=== PATIENT | female | born 1985 | race Caucasian/White ===

== ENCOUNTER 2016-05-12 16:48 | Inpatient (IN) | payer MEDICAID ==
[~2016-05-12] VITALS: Ht 152.4 cm; Wt 95.5 kg
[~2016-05-12 16:48] MED LIST: HYDR-906 PO; IBUP-1542 PO; PREN1TAB62 PO
[2016-05-12] MEDS ORDERED: FOLI0.4T2 PO (17:14)
[2016-05-12] MEDS ORDERED: CALC600T11 PO (17:14)
[2016-05-12] MEDS ORDERED: FERR134T PO (17:14)
[2016-05-12] MEDS: LACTATED RINGER'S 1,000 ML IV SCH (17:20)
[2016-05-12] MEDS ORDERED: IBUPROFEN 600 MG TAB PO PRN (17:30)
[2016-05-12] MEDS ORDERED: OXYTOCIN 30 UNITS/LR 500 ML IV SCH ×2 (17:30)
[2016-05-12] MEDS ORDERED: AMPICILLIN 2 GM/NS (PMX) 100 ML IV ONE (17:30)
[2016-05-12] MEDS ORDERED: METHYLERGONOVINE 0.2 MG INJ IM PRN (17:30)
[2016-05-12] MEDS ORDERED: ACETAMINOPHEN/CODEINE #3 TAB PO PRN (17:30)
[2016-05-12] MEDS ORDERED: BUTORPHANOL 2 MG INJ IV PRN (17:30)
[2016-05-12] MEDS ORDERED: CARBOPROST 250 MCG INJ IM PRN (17:30)
[2016-05-12] MEDS ORDERED: OXYTOCIN 30 UNITS/LR 500 ML IV PRN (17:30)
[2016-05-12] MEDS ORDERED: MISOPROSTOL 200 MCG TAB PR PRN (17:30)
[2016-05-12] MEDS ORDERED: LIDOCAINE 1% (MPF) 30 ML INJ INJ PRN (17:30)
[2016-05-12 17:32] LABS: BASOPHILS % 0.3 % (0.0-2.0); CONDITION 1; EOSINOPHILS # 0.1 10^3/ul (0.0-0.5); EOSINOPHILS % 0.7 % (0.0-7.0); HEMATOCRIT 33.4 % (37.0-47.0); HEMOGLOBIN 11.5 g/dl (12.0-16.0); LYMPHOCYTES # 2.1 10^3/ul (0.8-2.9); LYMPHOCYTES % 23.8 % (15.0-51.0); MEAN CORPUSCULAR HEMOGLOBIN 30.3 pg (29.0-33.0); MEAN CORPUSCULAR HGB CONC 34.4 g/dl (32.0-37.0); MEAN CORPUSCULAR VOLUME 88.1 fl (82.0-101.0); MEAN PLATELET VOLUME 9.4 fl (7.4-10.4); MONOCYTE # 0.4 10^3/ul (0.3-0.9); MONOCYTES % 4.4 % (0.0-11.0); NEUTROPHIL # 6.2 10^3/ul (1.6-7.5); NEUTROPHILS % 70.8 % (39.0-77.0); PLATELET COUNT 195 10^3/UL (140-440); RED BLOOD COUNT 3.79 10^6/ul (4.20-5.40); RED CELL DISTRIBUTION WIDTH 13.7 % (11.5-14.5); UNCORRECTED WBC 8.8 10^3/ul (4.8-10.8); WHITE BLOOD COUNT 8.8 10^3/ul (4.8-10.8)
[2016-05-12 17:41] LABS: INR 0.91; PROTIME 12.2 Sec (12.2-14.2)
[2016-05-12 17:42] LABS: PARTIAL THROMBOPLASTIN TIME 23.6 Sec (25.0-35.0)
[2016-05-12 17:45] VITALS: BP 116/75; PULSE 74; RESP 18
[2016-05-12] MEDS ORDERED: LACTATED RINGER'S 1,000 ML IV PRN (18:00)
--- NOTE | 2016-05-12 18:44 | RADRPT ---
PROCEDURE: US OB. CLINICAL INDICATION: Labor TECHNIQUE: Multiple sonographic images of the pelvis were obtained. Transabdominal imaging only w as performed. The images were reviewed on a PACS workstation. COMPARISON: No prior studies are available for comparison. FINDINGS: Single intrauterine gestation. Cephalic presentation. heart rate is 157 bpm. Measurements were made in order to determine age. The results are as follows: BPD = 9.35 cm HC = 33.54 cm AC = 36.33 cm FL = 7.62 cm Gestational age is 39 weeks 0 days and MINDY is 05/19/2016 by ultrasound criteria. Gestational age is 38 weeks 5 days and MINDY is 05/21/2016 by LMP. EFW = 3795 g +/- 569 g (83 %). The placenta is fundal. There is no evidence for an abruption or placenta previa. IMPRESSION: 1. Single live intrauterine gestation of approximately 39 weeks 0 days by ultrasound criteria. RPTAT: EE .Orlando Wilburn MD, MD Date Time Electronically viewed and signed by .Orlando Wilburn MD, on 05/12/2016 18:44 .R/
--- NOTE | 2016-05-12 18:45 | RADRPT ---
PROCEDURE: OB ultrasound for biophysical profile CLINICAL INDICATION: Labor. Biophysical profile. . TECHNIQUE: Multiple sonographic images of the pelvis were obtained. Transabdominal view of the gr avid uterus are available for review. The images were reviewed on a PACS workstation. COMPARISON: None FINDINGS: breathing movement = 2/2 tone = 2/2 motion = 2/2 NAVI = 2/2 Single intrauterine gestation is identified in cephalic position. heart rate is 139 bpm. Plac enta is fundal without evidence for abruption or previa. NAVI measures 15.6 cm, within normal limits . IMPRESSION: 1. Single live intrauterine gestation. 2. Biophysical profile = 8/8. 3. NAVI = 15.6 cm. RPTAT: EE .Orlando Wilburn MD, Date Time Electronically viewed and signed by .Orlando Wilburn MD, on 05/12/2016 18:44 .R/
[2016-05-12] MEDS ORDERED: AMPICILLIN 1 GM/NS (PMX) 50 ML IV SCH (21:30)
[2016-05-13] MEDS: LACTATED RINGER'S 1,000 ML IV SCH ×4 (01:47→21:58)
[2016-05-13] MEDS ORDERED: DINOPROSTONE 10 MG VAG SUPP VAG ONE (10:00)
[2016-05-13] MEDS ORDERED: OXYTOCIN 30 UNITS/LR 500 ML IV SCH (11:30)
[2016-05-13] MEDS ORDERED: FENTAnyl 2MCG/ML-ROPIV 0.2% 100 ML ONE (15:46)
[2016-05-13] MEDS ORDERED: FENTAnyl 2MCG/ML-ROPIV 0.2% 100 ML BAG EPI SCH (16:30)
[2016-05-13] MEDS ORDERED: NALOXONE (0.4 MG/ML) INJ IV PRN (16:30)
[2016-05-14] MEDS: LACTATED RINGER'S 1,000 ML IV SCH ×4 (00:02→16:52)
--- NOTE | 2016-05-14 03:35 | HP ---
Date/Time of Note Date/Time of Note DATE: 05/14/16 TIME: 03:31 OB - History Hx of Present Free Text/Dictation @38+6 wks GA admitted in labor ,Progressed to 9 cm ,No cervical change manager 4-5 hours(cx 9/-1),Developed category 2 tracing and repetitive decels , Primary c/section vs vaginal delivery discussed with patient,patient decides to have a primary c/section. Risks and benefits are extensively discussed : 5 Para: 3 Care: Good Care Ultrasounds: Normal mid trimester US Obstetrical Complications: None Medical Complications: None Past Family/Social History * Past Medical, Surgical, Family and Obstetric Histories reviewed from chart. OB Admission Exam Vital Signs Vital Signs Vital Signs Date Time Temp Pulse Resp B/P Pulse Ox O2 Delivery O2 Flow Rate FiO2 05/12/16 17:45 98.7 74 18 116/75 Room Air Physical Exam Abdomen: WNL Extremities: Normal Cervical Dilatation: 9cm Effacement: 100% Station: -1 Membranes: Ruptured Heart Rate: 140's Decelerations: Variable Decelerations Varibility: Moderate Contractions on Admission: < 5 Minutes Apart Last 72 hours Lab Results CBC & BMP 05/12/16 17:14 OB Assessment/Plan Reason for admission: observation Plan: Expectant Management Other plan: ,No cervical change manager 4-5 hours(cx 9/-1),Developed category 2 tracing and repetitive decels , Primary c/section vs vaginal delivery discussed with patient,patient decides to have a primary c/section. Risks and benefits are extensively discussed GERARDO CERVANTES M.D. May 14, 2016 03:34
--- NOTE | 2016-05-14 03:36 | OPR ---
Operative Report Planned Procedure Free Text/Dictation ,No cervical change coordinator 4-5 hours(cx 9/-1),Developed category 2 tracing and repetitive decels , Primary c/section vs vaginal delivery discussed with patient,patient decides to have a primary c/section. Risks and benefits are extensively discussed Procedure date May 14, 2016 Procedure(s) primary c/section Performed by: GERARDO CERVANTES M.D. Assisting provider: DANNI BRO MD Anesthesiologist: IVETH GARSIA MD Pre-procedure diagnosis ,No cervical change coordinator 4-5 hours(cx 9/-1),Developed category 2 tracing and repetitive decels , Primary c/section vs vaginal delivery discussed with patient,patient decides to have a primary c/section. Risks and benefits are extensively discussed Anesthesia Type: epidural Procedure Description Under satisfactory [] anesthesia, the patient was prepped and draped and placed in a supine position, tilted to the left. Pfannenstiel incision was made, carried through the subcutaneous tissue. Bleeders brought under control with electrocautery. Fascia incised to the length of the incision. Rectus muscles from the fascia, divided midline. Peritoneum exposed, entered through a transverse incision. Exploration of abdomen revealed gravid uterus. Bladder flap was developed. Transverse incision was made in the lower segment of the uterus. Amniotic sac ruptured. [] amniotic fluid noted. [] Nasal oropharyngeal suction was performed. The baby was handed to the team for immediate attention. The placenta was delivered manually intact. Uterine cavity was cleaned with wet sponge and drainage established. Uterus closed in 2 layers using [] in continuous fashion. Peritoneal cavity irrigated with warm saline. Sponge, needle and instrument count reported to be correct. Abdominal peritoneum closed with [] continuously. Rectus muscle approximated with []. Fascia closed with [], and skin closed with dermoband. Estimated blood loss [600 ]mL. Urine bag contained []mL of urine Thick meconium Cord around the neck Post-Procedure Findings: Live Baby [], Apgars [] and [], weight [], position [], [] presentation []cord. Specimen removed: Yes Complications: None Pt Condition post procedure: stable Disposition: PACU Physician Certification I, the undersigned physician, hereby certify that I have discussed the procedure described in this consent form with this patient (or the patient's legal installation service representative), including: * The risk and benefits of the procedure; * Any adverse reactions that may reasonably be expected to occur; * Any alternative efficacious methods of treatment which may be medically viable ; * The potential problems that may occur during recuperation; * Potential for blood transfusion and associated risks/benefits; and * Any research or economic interest I may have regarding this treatment. I further certify that the patient/legally responsible person was encouraged to ask question and that all questions were answered. GERARDO CERVANTES M.D. May 14, 2016 03:36
[2016-05-14] MEDS ORDERED: PHENYLephrine (100 MCG/ML) 5ML SYG ONE ×2 (03:57→04:32)
[2016-05-14] MEDS ORDERED: ONDANSETRON 4 MG INJ ONE (03:58)
[2016-05-14] MEDS ORDERED: OXYTOCIN 10 UNIT INJ ONE (03:58)
[2016-05-14] MEDS ORDERED: morphine SULFATE/PF (10 MG/10 ML) INJ ONE (04:11)
[2016-05-14] MEDS ORDERED: ONDANSETRON 4 MG INJ IV PRN (05:00)
[2016-05-14] MEDS ORDERED: DIPHENHYDRAMINE 50 MG INJ IV PRN (05:00)
[2016-05-14] MEDS ORDERED: morphine 2 MG INJ IV PRN (05:00)
[2016-05-14] MEDS ORDERED: NALOXONE (0.4 MG/ML) INJ IV PRN (05:00)
[2016-05-14] MEDS: KETOROLAC 30 MG INJ IV PRN ×2 (05:54→23:40)
--- NOTE | 2016-05-14 06:22 | DELSUM ---
Delivery Summary A-C Datetime Report Generated by CPN: 05/14/2016 06:22 DELIVERY PERSONNEL Crisis Therapist: Long, Yee MATERNAL INFORMATION Delivery Anesthesia: Epidural Medications in Delivery: SEE ANESTHESIA Estimated Blood Loss (ml): 600 Placenta Cultured: Yes Maternal Complications: None RN Comments: "FAILURE TO PROGRESS FROM 8./, WAITING FOR 4-5 HOURS; CATEGORY II TRACING" LABOR SUMMARY EDC: 05/21/2016 00:00 No. Babies in Womb: 1 Attempted: No Labor Anesthesia: Epidural LABOR INFORMATION Reason for Induction: Not Applicable Onset of Labor: 05/12/2016 01:00 Oxytocin: Augmentation Group B Beta Strep: Negative Group B Beta Strep: Positive Group B Beta Strep: Negative Group B Beta Strep: Done, Result Unknown Antibiotics # of Doses: 1 Antibiotics Time of Last Dose: 05/14/2016 03:55 Steroids Given: None Reason Steroids Not Administered: Not Applicable MEMBRANES Membranes Rupture Method: Spontaneous Rupture of Membranes: 05/13/2016 20:58 Length of Rupture (hr): 7.05 Amniotic Fluid Color: Clear Amniotic Fluid Amount: Moderate Amniotic Fluid Odor: None STAGES OF LABOR Stage 3 hr: 0 Stage 3 min: 0 Total Time in Labor hr: 51 Total Time in Labor min: 1 CSECTION DELIVERY Primary Indication: Arrest of Descent Secondary Indication: Other Other Secondary Indication: multiple decels CSection Urgency: Emergency CSection Incidence: Primary Labor: Labor Elective: Nonelective CSection Incision: Lower Uterine Transverse BABY A INFORMATION Delivery Date/Time: 05/14/2016 04:01 Method of Delivery: Born in Route : No : N/A Forceps: N/A Vacuum Extraction: N/A Shoulder Dystocia : N/A SHOULDER DYSTOCIA BABY A Infant Delivery Date/Time: 05/14/2016 04:01 PRESENTATION/POSITION BABY A Presentation: Cephalic Presentation: Cephalic Cephalic Presentation: Vertex Vertex Position: Right Occipital Posterior Breech Presentation: N/A PLACENTA INFORMATION BABY A Placenta Delivery Time : 05/14/2016 04:01 Placenta Method of Delivery: Manual Removal Placenta Status: Delivered SCORES BABY A Heart Rate 1 min: >100 bpm Resp Effort 1 min: Good Cry Reflex Irritability 1 min: Cough/Sneeze/Pulls Away Muscle Tone 1 min: Active Motion Color 1 min: Body [place], Extremit Blue Resuscitation Effort 1 min: Tactile Stimulation SCORE 1 MIN: 9 Heart Rate 5 min: >100 bpm Resp Effort 5 min: Good Cry Reflex Irritability 5 min: Cough/Sneeze/Pulls Away Muscle Tone 5 min: Active Motion Color 5 min: Body Win[place], Extremit Blue Resuscitation Effort 5 min: Tactile Stimulation SCORE 5 MIN: 9 INFANT INFORMATION BABY A Gestational Age at Delivery: 39.0 Gestational Status: Full Term- 39- 40.6 Weeks Outcome : Liveborn Infant Condition : Stable Sex: Male IDENTIFICATION/MEDS BABY A ID Band Number: [id number] ID Band Location: Right Leg; Left Arm Sensor Applied: Yes Sensor Number: [id number] Sensor Location : Cord Clamp Vitamin K Given : Not Given Erythromycin Given: Not Given WEIGHT/LENGTH BABY A Infant Birthweight (gm): 3425 Infant Weight (lb): 7 Weight (oz): 9 Length (in): 19.00 Infant Length (cm): 48.26 CORD INFORMATION BABY A No. Cord Vessels: 3 Nuchal Cord : Around Neck x1, Loose Cord Blood Taken: Yes Suction: Mouth; Nose ASSESSMENT BABY A Complications: Multiple Variable Decels; Meconium Physical Findings at Delivery: Within Normal Limits Respirations: Appears Normal Landscape Specialist/ALS Called : Yes Infant Care By: shae payne rn; angelo rt Transferred To: Remains with Mother
[2016-05-14 08:20] VITALS: PULSE 61; RESP 17
[2016-05-14] MEDS ORDERED: METHYLERGONOVINE 0.2 MG INJ IM PRN (08:30)
[2016-05-14] MEDS ORDERED: OXYTOCIN 30 UNITS/LR 500 ML IV PRN (08:30)
[2016-05-14] MEDS ORDERED: CARBOPROST 250 MCG INJ IM PRN (08:30)
[2016-05-14] MEDS ORDERED: MISOPROSTOL 200 MCG TAB PR PRN (08:30)
[2016-05-14] MEDS: CEFAZOLIN 2 GM/50 ML (PMX) 50 ML IV SCH ×2 (08:50→16:52)
[2016-05-14] MEDS: SENNA/DOCUSATE NA (8.6MG/50MG) TAB PO SCH ×2 (08:51→21:30)
[2016-05-14 09:20] VITALS: BP 110/63; PULSE 65; RESP 17
[2016-05-14 09:50] LABS: BASOPHILS % 0.2 % (0.0-2.0); HEMATOCRIT 33.4 % (37.0-47.0); HEMOGLOBIN 11.4 g/dl (12.0-16.0); LYMPHOCYTES % 8.3 % (15.0-51.0); MEAN CORPUSCULAR HEMOGLOBIN 29.9 pg (29.0-33.0); MEAN CORPUSCULAR HGB CONC 34.1 g/dl (32.0-37.0); MEAN CORPUSCULAR VOLUME 87.8 fl (82.0-101.0); MEAN PLATELET VOLUME 10.4 fl (7.4-10.4); MONOCYTE # 0.4 10^3/ul (0.3-0.9); MONOCYTES % 3.2 % (0.0-11.0); NEUTROPHIL # 10.7 10^3/ul (1.6-7.5); NEUTROPHILS % 88.3 % (39.0-77.0); PLATELET COUNT 147 10^3/UL (140-440); RED CELL DISTRIBUTION WIDTH 13.1 % (11.5-14.5); UNCORRECTED WBC 12.1 10^3/ul (4.8-10.8); WHITE BLOOD COUNT 12.1 10^3/ul (4.8-10.8)
[2016-05-14 09:52] LABS: CONDITION 1
[2016-05-14 11:50] VITALS: BP 106/66; PULSE 63; RESP 18
[2016-05-14 12:30] LABS: RUBELLA ANTIBODY - IGG 1.47
[2016-05-14 16:00] VITALS: BP 106/64; PULSE 65; RESP 18
[2016-05-14 20:05] VITALS: BP 119/57; PULSE 73; RESP 18
[2016-05-15] VITALS: BP 108/58; PULSE 78; RESP 18
[2016-05-15] MEDS: CEFAZOLIN 2 GM/50 ML (PMX) 50 ML IV SCH (00:19)
[2016-05-15] MEDS: LACTATED RINGER'S 1,000 ML IV SCH (02:01)
[2016-05-15 04:00] VITALS: BP 106/65; PULSE 76; RESP 18
[2016-05-15] MEDS: IBUPROFEN 600 MG TAB PO SCH ×4 (05:34→23:46)
[2016-05-15 08:00] VITALS: BP 101/56; PULSE 68; RESP 20
[2016-05-15 08:17] LABS: EOSINOPHILS % 0.3 % (0.0-7.0); HEMATOCRIT 26.3 % (37.0-47.0); HEMOGLOBIN 8.8 g/dl (12.0-16.0); LYMPHOCYTES # 1.4 10^3/ul (0.8-2.9); LYMPHOCYTES % 18.7 % (15.0-51.0); MEAN CORPUSCULAR HGB CONC 33.5 g/dl (32.0-37.0); MEAN CORPUSCULAR VOLUME 89.8 fl (82.0-101.0); MEAN PLATELET VOLUME 11.1 fl (7.4-10.4); MONOCYTE # 0.3 10^3/ul (0.3-0.9); MONOCYTES % 4.1 % (0.0-11.0); NEUTROPHIL # 5.6 10^3/ul (1.6-7.5); NEUTROPHILS % 76.6 % (39.0-77.0); PLATELET COUNT 130 10^3/UL (140-415); RED BLOOD COUNT 2.93 10^6/ul (4.20-5.40); WHITE BLOOD COUNT 7.3 10^3/ul (4.8-10.8)
[2016-05-15] MEDS: SENNA/DOCUSATE NA (8.6MG/50MG) TAB PO SCH ×2 (08:28→21:09)
[2016-05-15 15:48] VITALS: BP 103/59; PULSE 80; RESP 18
[2016-05-15 20:00] VITALS: BP 105/64; PULSE 77; RESP 24
--- NOTE | 2016-05-15 22:24 | QN ---
Documentation Comment POD#1 is stable afebrile tolerates diet no VB +flatus +voids vs stable Gen NAD Abd soft nt nd Geitalia no blood at perinium --->discharge plaan tomorrow --->ambulation GERARDO CERVANTES M.D. May 15, 2016 22:24
[2016-05-16 04:00] VITALS: BP 104/54; PULSE 63; RESP 18
[2016-05-16] MEDS: IBUPROFEN 600 MG TAB PO SCH ×3 (05:34→17:42)
[2016-05-16] MEDS: SENNA/DOCUSATE NA (8.6MG/50MG) TAB PO SCH ×2 (08:01→20:17)
[2016-05-16 08:02] VITALS: BP 104/64; PULSE 61; RESP 18
[2016-05-16] MEDS: OXYCODONE/ACETAMINOPHEN (5/325) TAB PO PRN ×3 (08:02→20:17)
[2016-05-16 15:21] VITALS: BP 114/54; PULSE 69; RESP 18
--- NOTE | 2016-05-16 17:20 | DS ---
Date/Time of Note Date/Time of Note DATE: 05/16/16 TIME: 17:18 Discharge Summary Admission/Discharge Info Admit Date/Time May 12, 2016 at 16:48 Discharge Date/Time May 17 2016 Final Diagnosis Labor Non reassuring FHR Failure to progress Patient Condition: Stable Procedures Primary c/section Hospital Course uneventful Home Meds Reported Medications Calcium Carbonate* (Calcium Carbonate*) 600 MG Ca Tab, 600 MG PO DAILY, TAB 05/12/16 Folic Acid* (Folic Acid*) 0.4 Mg Tablet, 0.4 MG PO DAILY, TAB 05/12/16 Ferrous Sulfate (Iron) 134 Mg Tablet, 134 MG PO DAILY, TAB 05/12/16 Vit-Iron Fumarate-FA ( Vitamin Tablet) 1 Each Tablet, 1 EACH PO DAILY 02/14/13 Discontinued Scripts Hydrocodone/Acetaminophen ([place] 5-325 Tablet) 1 Each Tablet, 1 EACH PO Q4, #15 TAB Prov:WILLIAM HEBERT 11/11/15 Ibuprofen* (Ibuprofen*) 600 Mg Tablet, 600 MG PO Q6H Y for PAIN, #30 TAB Prov:DEIDRA PRESTON NP 12/19/14 GERARDO CERVANTES M.D. May 16, 2016 17:20
[2016-05-16 20:17] VITALS: BP 105/53; PULSE 82; RESP 17
[2016-05-17] MEDS: IBUPROFEN 600 MG TAB PO SCH ×3 (00:20→12:50)
[2016-05-17] MEDS: OXYCODONE/ACETAMINOPHEN (5/325) TAB PO PRN ×3 (02:24→16:13)
[2016-05-17 04:00] VITALS: BP 100/59; PULSE 80; RESP 18
[2016-05-17 08:40] VITALS: BP 107/57; RESP 18
[2016-05-17] MEDS: SENNA/DOCUSATE NA (8.6MG/50MG) TAB PO SCH (08:40)
[2016-05-17] MEDS ORDERED: DIPHTH/TET/ACEL PERTUSS (ADULT) 0.5 ML VIAL IM* ONE (09:00)
[2016-05-17] MEDS ORDERED: MEASLES,MUMPS,RUBELLA VACCINE INJ SC* ONE (11:00)
[2016-05-17 16:13] VITALS: BP 110/60; PULSE 70; RESP 18
== END 2016-05-17 17:12 | disposition home or self-care (01) | DRG 765 ==
LOC: L-D 16:48 → PP1 05-14 08:20
PROVIDERS: ADMIT Obstetrics & Gynecology; ATTEND Obstetrics & Gynecology
PROC: 10D00Z1 Extraction of Products of Conception, Low, Open Approach (ICD-10-PCS; principal; 2016-05-14 04:00)
DX: O76 Abnormality in fetal heart rate and rhythm complicating labor and delivery (principal); Z68.41 Body mass index [BMI] 40.0-44.9, adult; O99.214 Obesity complicating childbirth; E66.01 Morbid (severe) obesity due to excess calories; O62.0 Primary inadequate contractions; Z3A.38 38 weeks gestation of pregnancy; Z37.0 Single live birth
CPT/HCPCS: 62319; 76815; 76818; 85025; 85610; 85730; 86592; 86762; 86900; 86901; 87340; 88307; 90715; 94760; 99464; J0290; J0690; J1885; J2210; J2274; J2370; J2405; J2590; J3010; J7120

== ENCOUNTER 2016-08-26 07:51 | Day surgery (SDC) | payer MEDICAID ==
[~2016-08-26] VITALS: Ht 154.9 cm; Wt 95.9 kg
[2016-08-26] VITALS (16 sets, daily range): BP systolic 100–136; BP diastolic 47–75; PULSE 60–74; RESP 14–23; Ht 154.9 cm; Wt 95.9 kg
[~2016-08-26 07:51] MED LIST changes: +CEFAZOLIN 1 GM INJ ONE; +DEXAMETHASONE 4 MG/ML 1 ML INJ ONE; +FAMOTIDINE 20 MG INJ ONE; +FENTAnyl 50 MCG/ML VIAL ONE; -HYDR-906 PO; -IBUP-1542 PO; +LACTATED RINGER'S 1,000 ML IV SCH; +LIDOCAINE 1% (MDV) 20 ML INJ ONE; +MIDAZOLAM 1 MG/ML 2 ML INJ ONE; +ONDANSETRON 4 MG INJ ONE; -PREN1TAB62 PO; +PROPOFOL 200 MG INJ ONE; +ROCURONIUM 50 MG INJ ONE; +ROPIVACAINE 0.2% 20 ML VIAL ONE
[2016-08-26 09:01] LABS: ADD SCAN DIFF NO
[2016-08-26 09:03] LABS: BASOPHILS % 0.3 % (0.0-2.0); EOSINOPHILS # 0.1 10^3/ul (0.0-0.5); EOSINOPHILS % 1.4 % (0.0-7.0); HEMATOCRIT 37.6 % (37.0-47.0); HEMOGLOBIN 12.5 g/dl (12.0-16.0); LYMPHOCYTES # 2.1 10^3/ul (0.8-2.9); LYMPHOCYTES % 32.3 % (15.0-51.0); MEAN CORPUSCULAR HGB CONC 33.2 g/dl (32.0-37.0); MEAN CORPUSCULAR VOLUME 84.3 fl (82.0-101.0); MEAN PLATELET VOLUME 10.5 fl (7.4-10.4); MONOCYTE # 0.4 10^3/ul (0.3-0.9); MONOCYTES % 5.5 % (0.0-11.0); NEUTROPHILS % 60.3 % (39.0-77.0); PLATELET COUNT 220 10^3/UL (140-415); RED BLOOD COUNT 4.46 10^6/ul (4.20-5.40); RED CELL DISTRIBUTION WIDTH 13.5 % (11.5-14.5); WHITE BLOOD COUNT 6.5 10^3/ul (4.8-10.8)
[2016-08-26] MEDS ORDERED: HYDROmorphONE (0.2 MG/ML) 10ML SYG IV PRN ×2 (11:00)
[2016-08-26] MEDS ORDERED: MEPERIDINE 25 MG INJ IV PRN (11:00)
[2016-08-26] MEDS ORDERED: DIPHENHYDRAMINE 50 MG INJ IV PRN (11:00)
--- NOTE | 2016-08-26 12:27 | OPR ---
DATE OF OPERATION: 08/26/2016 PREOPERATIVE DIAGNOSIS: Multiparity, desires sterilization. POSTOPERATIVE DIAGNOSIS: Multiparity, desires sterilization. OPERATION PERFORMED: Laparoscopic bilateral tubal ligation. SURGEON: Stevie Lawson MD ANESTHESIA: General. ANESTHESIOLOGIST: Dr. Lundberg ESTIMATED BLOOD LOSS: Less than 2 mL. COMPLICATIONS: None. DESCRIPTION OF PROCEDURE: The patient was taken to the operating room where general anesthesia was found to be adequate. The patient was placed in dorsal lithotomy position. After prep and drape, a weighted speculum was placed inside the vaginal vault. Anterior lip of the cervix was grasped by a single-tooth tenaculum and HUMI was inserted and fixed in place. Then, attention turned to abdomin al field. A 1 cm incision was made below the umbilicus. First trocar was inserted under direct vis ualization of the camera, then intraabdominal cavity was filled up using 4 L of CO2. Second trocar was inserted on right side of the incision 8 cm from the first one and second trocar was inserted un pako direct visualization of the camera. Heavy adhesions were noticed around the uterus and tubes an d ovaries. Lysis of adhesions was done. The right tube was identified, midportion of right tube wa s grasped and using the gyrus applicator was burned the size of 3 cm. Same procedure was done on th e left side. Hemostasis achieved. The patient tolerated the procedure well. There was no complica tion regarding this surgery. Dictated By: STEVIE VANCE/ALEX Conf#: [id number] DID#: [id number]
--- NOTE | 2016-08-26 12:38 | HP ---
DATE OF ADMISSION: 08/26/2016 HISTORY OF PRESENT ILLNESS: This is a 31-year-old 4, para 4 who desires sterilization. PAST MEDICAL HISTORY: Denies. PAST SURGICAL HISTORY: . ALLERGIES: NKDA. PHYSICAL EXAMINATION: VITAL SIGNS: Stable. GENERAL: Normal. ABDOMEN: Obese. scar was noted. ASSESSMENT AND PLAN: A 31-year-old 4, para 4, desires laparoscopic bilateral tubal ligation , risk of laparotomy discussed with the patient. Risks and benefits of the procedure discussed. Al ternatives discussed. Risks and benefits of alternatives discussed. The patient signed the consent and was taken to the operating room. Dictated By: GERARDO VANCE/ALEX Conf#: [id number] DID#: [id number]
== END 2016-08-26 13:17 | disposition home or self-care (01) ==
LOC: SDS 07:51
PROVIDERS: ATTEND Obstetrics & Gynecology
DX: Z30.2 Encounter for sterilization (principal)
CPT/HCPCS: 58670; 84703; 85025; 86850; 86900; 86901; J0690; J1100; J2250; J2405; J2795; J3010; Z7512; Z7610